=== PATIENT | male | born 1955 | race Caucasian/White ===

== ENCOUNTER 2021-11-24 19:48 | Emergency (ER) | payer MEDICARE, OTHER, SELFPAY ==
[2021-11-24 20:09] VITALS: BP 164/81; PULSE 86; RESP 18; TEMP 36.4; O2SAT 94
--- NOTE | 2021-11-24 20:33 | ED.HA ---
HPI - Headache General Chief Complaint: Headache Stated Complaint: high blood pressure Time Seen by Provider: 11/24/21 19:52 Source: patient and RN notes reviewed Mode of arrival: ambulatory Limitations: no limitations History of Present Illness HPI Narrative: mild persistent MUELLER and sinus congestion MD elicited complaint: headache Onset (ago): day(s) (1) Onset description: gradually Location: frontal Severity: mild Pain scale (0-10): 5 Exacerbating factors: none Relieving factors: NSAIDs Context: occurred at rest Associated symptoms: other (mild nasal congestion) Related Data Home Medications Medication Instructions Recorded Confirmed allopurinol 300 mg tablet 300 tablet PO DAILY 11/24/21 11/24/21 dabigatran etexilate 150 mg 150 cap PO DAILY 11/24/21 11/24/21 capsule (Pradaxa) empagliflozin 10 mg tablet 10 mg PO DAILY 11/24/21 11/24/21 (Jardiance) ezetimibe 10 mg tablet 10 tablet PO DAILY 11/24/21 11/24/21 metformin 1,000 mg tablet 1,000 tablet PO DAILY 11/24/21 11/24/21 metoprolol succinate 25 mg 25 tablet PO DAILY 11/24/21 11/24/21 tablet,extended release 24 hr (Toprol XL) pantoprazole 40 mg tablet,delayed 40 tablet PO DAILY 11/24/21 11/24/21 release sildenafil 100 mg tablet 100 tablet PO DAILY 11/24/21 11/24/21 valsartan 80 80 tablet PO DAILY 11/24/21 11/24/21 mg-hydrochlorothiazide 12.5 mg tablet Allergies Allergy/AdvReac Type Severity Reaction Status Date / Time gabapentin Allergy Unknown Verified 11/24/21 20:12 pravastatin Allergy Unknown Verified 11/24/21 20:12 primidone Allergy Unknown Verified 11/24/21 20:12 Sulfa (Sulfonamide Allergy Unknown Verified 11/24/21 20:12 Antibiotics) vancomycin Allergy Unknown Verified 11/24/21 20:12 Review of Systems Review of Systems: All systems reviewed & are unremarkable except as noted in HPI and below Constitutional: Comments: MUELLER Eyes: Eyes: Reports no additional eye complaints ENT: Reports nasal congestion Cardiovascular: Cardiovascular: Reports no additional cardiovascular complaints Respiratory: Respiratory: Reports no additional respiratory complaints Gastrointestinal: Gastrointestinal: Reports no additional gastrointestinal complaints Musculoskeletal: Musculoskeletal: Reports no additional musculoskeletal complaints Integumentary/Breasts: Skin/Breast: Reports system reviewed and no additional complaints, except as docu Neurologic: Reports system reviewed and no additional complaints, except as documented Psychiatric: Psychiatric: Reports no additional psychiatric complaints Endocrine: Endocrine: Reports no additional endocrine complaints Hematologic/Lymphatic: Hematologic/Lymphatic: Reports no additional hematologic/lymphatic complaints Allergic/Immunologic: Allergic/Immunologic: Reports no additional allergic/immunologic complaints PMFSH Past Medical History Medical History (Updated 01/04/22 @ 14:00 by Kassandra Salgado MD) Headache Sinusitis Exam Const: General: healthy appearing and no acute distress Nutritional Appearance: well nourished Orientation/consciousness: patient oriented x3 Limitations: no limitations HENMT: Head: normal to inspection Ears: external ears normal, TM's normal bilaterally and EAC's normal General nose exam: Normal external nose present and Normal nares present Face and sinus: normal facial exam and sinuses nontender Mouth: Yes Normal oral and palatal mucosa present and Yes moist mucous membranes Teeth and gingiva: dentition normal Throat: posterior oropharynx normal Eyes: Conjunctivae: conjunctivae normal Pupils: Equal, round and reactive pupils present EOM: EOMs intact bilaterally Neck: Neck: normal visual inspection, no lymphadenopathy and no meningeal signs Chest: Chest palpation & inspection: normal inspection of the chest Resp: Effort & Inspection: normal respiratory effort Auscultation: clear to auscultation bilaterally Cardio: Rate: regular rate Rhyth
[2021-11-24] MEDS: cefTRIAXone 1 GM, LIDOCAINE HCL 1% LOCAL INJ 2.1 ML IM (20:43)
[2021-11-24] MEDS: ACETAMINOPHEN 325 MG TABLET 650 MG PO (20:43)
[2021-11-24 21:07] VITALS: BP 159/82; PULSE 78; RESP 18; O2SAT 98
== END 2021-11-24 21:08 | disposition home or self-care (01) ==
PROVIDERS: Emergency Provider Emergency Medicine
DX: J32.9 Chronic sinusitis, unspecified (principal); R51.9 Headache, unspecified
CPT/HCPCS: 73140; 96372; A9270; J0696